=== PATIENT | female | born 1965 | race Caucasian/White ===

== ENCOUNTER → 2021-04-04 14:43 | Outpatient (CLI) | payer BC, SELFPAY ==
--- NOTE | ~2021-04-04 | XR_ITS ---
XR chest 2V DATE: 04/04/2021 15:02 INDICATION: Cough TECHNIQUE: 2 views COMPARISON: None FINDINGS: Normal heart size. No hilar or mediastinal enlargement. No pulmonary infiltrate or consolid ation, pleural effusion or pulmonary vascular congestion or pneumothorax. IMPRESSION: No active cardiopulmonary disease Reviewed, dictated and finalized at location A.
== END ==
PROVIDERS: PCP Family Medicine; Visit Provider Family Medicine
DX: R05 Cough (principal)
CPT/HCPCS: 71046

== ENCOUNTER 2021-05-22 08:02 | Outpatient (CLI) | payer BC, SELFPAY ==
--- NOTE | 2021-05-22 11:37 | WPDPFTINT ---
PFT Procedure Performed PFT Procedure Performed Spirometry with Pre/Post Bronchodilator Plethysmography (Lung Vol) Diffusing Cap (DLCO) Flow Vol Loop PFT Interpretation Lung volumes were measured with the body plethysmography method. The lung volumes are unremarkable. Spirometry showed a normal expiratory flow rates, and a normal FEV1 to FVC ratio of 77%. Following the administration of inhaled bronchodilator, there was no significant change in the expiratory flow rates. The flow volume loop is unremarkable. Lung diffusion capacity is within the normal range. Impression: Spirometry, lung volumes, and lung diffusion capacity all within the normal range.
== END 2021-05-22 08:03 | disposition home or self-care (01) ==
PROVIDERS: PCP Family Medicine; Visit Provider Family Medicine
DX: M25.462 Effusion, left knee (principal)
CPT/HCPCS: 94060; 94726; 94729